=== PATIENT | female | born 1945 | race Caucasian/White ===

== ENCOUNTER 2019-10-15 06:16 | Inpatient (IN) | payer MEDICARE ==
[~2019-10-15] VITALS: Ht 162.6 cm; Wt 47.4 kg
[2019-10-15 06:21] VITALS: BP 203/91
[2019-10-15 08:18] LABS: APTT 27.3 Seconds (25.0-31.3); PROTIME 10.5 Seconds (9.20-11.50)
[2019-10-15 08:22] LABS: CALCIUM 8.2 mg/dL (8.5-10.1); CREATININE 0.6 mg/dL (0.6-1.3); POTASSIUM 4.4 mmol/L (3.5-5.1)
[2019-10-15 08:24] LABS: ABSOLUTE EOSINOPHILS 0.1 thou/uL (0.0-0.7); ABSOLUTE LYMPHOCYTES 1.2 thou/uL (0.8-5.3); ABSOLUTE MONOCYTES 0.8 thou/uL (0.0-1.2); ABSOLUTE NEUTROPHILS 4.7 thou/uL (1.6-8.1); BASOPHILS 0.5 %; EOSINOPHILS 0.9 %; HEMATOCRIT 38.1 % (37.0-47.0); HEMOGLOBIN 13.2 gm/dL (12.0-15.0); LYMPHOCYTES 17.1 %; MCH 34.1 pg (26.0-34.0); MCHC 34.6 g/dL (28.0-37.0); MCV 98.6 fL (80.0-100.0); MONOCYTES 11.3 %; MPV 7.7 fl. (7.2-11.1); NUCLEATED RBCS 0 /100WBC; PLATELET COUNT* 235 thou/uL (150-400); POLYS 70.2 %; RBC 3.87 mil/uL (4.20-5.00); RDW-CV 12.9 % (10.5-14.5); WBC 6.7 thou/uL (4.0-11.0)
[2019-10-15 08:27] LABS: ALBUMIN 3.6 g/dL (3.4-5.0); TOTAL BILIRUBIN 0.3 mg/dL (<0.1-1.0); TOTAL PROTEIN 6.5 g/dL (6.4-8.2)
[2019-10-15 08:38] LABS: URINE BILIRUBIN NEGATIVE (Negative); URINE BLOOD NEGATIVE (Negative); URINE CLARITY CLEAR; URINE COLOR YELLOW; URINE GLUCOSE-RANDOM NEGATIVE (Negative); URINE KETONES NEGATIVE (Negative); URINE LEUKOCYTES-REFLEX NEGATIVE (Negative); URINE NITRITE-REFLEX NEGATIVE (Negative); URINE PROTEIN NEGATIVE (Negative); URINE UROBILINOGEN 0.2 E.U./dl (0.2-1.0)
[2019-10-15 09:19] VITALS: BP 154/57
[2019-10-15 09:30] VITALS: BP 141/61
[2019-10-15 11:45] LABS: CALCIUM 7.6 mg/dL (8.5-10.1); CREATININE 0.6 mg/dL (0.6-1.3)
--- NOTE | 2019-10-15 16:18 | EKG ---
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
--- NOTE | 2019-10-15 18:31 | NUR ---
PATIENT ARRIVED TO UNIT AT APROX 0930. ALERT AND ORIENTED X4. ADMISSION HISTORY AND ASSESSMENT CPMPLETED AND CHARTED. VSS ON 2 LITERS 02. PAIN MEDICATION GIVEN BEFORE PATIENT CAME TO UNIT AND PATIENT COMFORTABLE AT THAT TIME. FLUIDS INFUSED ORDERED. PAIN MANAGED WITH IV FENTANYL. NO OTHER COMPLAINTS THIS SHIFT. FALL PRECAUTION IN PLACE. CALL LIGHT WIHTIN REACH. HOURLY ROUNDS COMPLETED. WILL CONTINUE WITH PLAN OF CARE.
[2019-10-15 20:00] VITALS: BP 126/59
[2019-10-16 04:12] LABS: HEMATOCRIT 32.3 % (37.0-47.0); MCH 34.4 pg (26.0-34.0); MCHC 34.6 g/dL (28.0-37.0); MCV 99.5 fL (80.0-100.0); RBC 3.25 mil/uL (4.20-5.00); RDW-CV 12.9 % (10.5-14.5); WBC 8.3 thou/uL (4.0-11.0)
[2019-10-16 04:29] LABS: HEMOGLOBIN 11.2 gm/dL (12.0-15.0)
[2019-10-16 04:31] LABS: CREATININE 0.7 mg/dL (0.6-1.3); MAGNESIUM 1.6 mg/dL (1.8-2.4); POTASSIUM 3.9 mmol/L (3.5-5.1)
[2019-10-16 05:45] VITALS: BP 126/59
--- NOTE | 2019-10-16 06:00 | NUR ---
PATIENT SLEPT WELL DURING THIS SHIFT. PT REQUESTED PAIN MEDICATION X2. PT C/O RT HIP PAIN. PT NPO SINCE MIDNIGHT. PT WITH SALINE LOCK IN RT FOREARM. PT REFUSED SEVERAL TURNS BUT WAS ASSISTED WTIH SOME. PT ON O2 @ 2 LITERS PER NASAL CANNULA. PT DENIES NEEDS AT THIS TIEM. FREQUENTLY USED ITEMS AND CALL LIGHT WITHIN REACH. SIDERAILS UPX2 AND BED ALARM ON. WILL CONTINUE TO MONITOR.
--- NOTE | 2019-10-16 06:23 | NUR ---
THREE RINGS, ONE WATCH AND EARRINGS WERE REMOVED FROM PATIENT AND PLACED IN BIOHAZARD BAG WITH PATIENT'S LABEL ON IT AND PUT IN [facility] 107
--- NOTE | 2019-10-16 10:15 | NUR ---
PT BACK FROM SURGERY. FAMILY AT BS. DENIES PAIN.
[2019-10-16 11:30] VITALS: BP 116/63
[2019-10-16 11:54] VITALS: BP 116/63
--- NOTE | 2019-10-16 13:25 | EKG ---
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 10/16/19 1325 7 Rc Pierson MD, [facility] /EPI
--- NOTE | 2019-10-16 15:44 | NUR ---
Nutrition: Pt admitted with femur head FX - surgery done. Regular diet ordered. Spoke with pt and today. Pt only ate a few bites today. She is at her usual wt, 104#, they reported no recent wt changes. BMI 17.9. PMHx: probable COPD, ETOH use. Labs: BG 107, albumin 3.6, Hgb 11.2. Pt refused Ensure supplements. Encouraged to eat well and keep strength up. Underweight R/T current conditions AEB "probable COPD," body frame, BMI <18.5. No other nutrition interventions today. Did explain how to order from menu. Mild risk.
[2019-10-16 16:03] VITALS: BP 119/66
--- NOTE | 2019-10-16 16:30 | NUR ---
SPOKE WITH PT.,SON-MOODY AND -DELLA. SHE WAS ALERT AND COULD ANSWER QUESTIONS APPROPRIATELY. SHE AND LIVE ALONE IN A HOUSE IN [facility]. SON,MOODY AND HIS , ALSO LIVE IN [place], [place]. DAUGHTER,JEANNETTE, LIVES IN [place] BUT WORKS IN [place]. PT.SAID SHE HAS A WALKER WITH SEAT BUT DOESN'T USE ALL THE TIME. THEY HAVE A RAMP TO GET INTO HOME. SHE DOES NOT HAVE O2 AT HOME. SHE SAID SHE HAS ALWAYS REFUSED HH IN THE PAST. PT.TO START PT/OT TOMORROW. SON FOLLOWED CM OUT OF ROOM. TOLD CM THAT AT DISCHARGE THEY WOULD LIKE PT.TO GO TO A SNF CALLED [facility] IN [place] [facility] ON . [phone]. CM WILL MAKE REFERRAL ON SATURDAY AM AFTER THERAPY HAS EVALUATED PT. SON SAID PT.IS NOT GOING TO HAVE A CHOICE ON WHETHER SHE GOES THERE OR NOT. HE SHARED THAT PT.IS AN ALCOHOLIC. SHE DRINKS UP TO 30 BEERS/DAY.
--- NOTE | 2019-10-16 17:49 | NUR ---
ASSUMED CARE OF PATIENT AT APPROX 1245. ALERT AND ORIENTED X4. VSS ON 2 LITERS 02. COMPLAINT OF PAIN ADDRESSED WITH ORAL NORCO. NO OTHER COMPLAINTS. DRESSING TO RIGHT HIP IS CLEAN, DRY AND INTACT. FAMILY AT BEDSIDE THROUGHOUT SHIFT. FALL PRECAUTIONS IN PLACE. CALL LIGHT WITHIN REACH. WILL CONTINUE WITH PLAN OF CARE.
[2019-10-16 20:11] VITALS: BP 145/54
[2019-10-17] VITALS: BP 132/54
[2019-10-17 04:00] VITALS: BP 133/56
--- NOTE | 2019-10-17 05:15 | NUR ---
PATIENT VERY HARD OF HEARING AND BLIND. SHE DID NOT REPORT ANY PAIN, SHE WANTED SOMETHING TO HELP HER SLEEP AND SHE SLEPT ALL SHIFT. MEPALEX ON RIGHT HIP STILL C/D/I. 2L - O2, WYLIE CLEAR YELLOW OUTPUT. ALERT AND ORIENTED BUT SOMEWHAT FORGETFUL. WILL CONTINUE TO FOLLOW PLAN OF CARE.
--- NOTE | 2019-10-17 05:27 | NUR ---
PATIENT NOW ON ROOM AIR SAT 98%
[2019-10-17 08:15] VITALS: BP 130/61
[2019-10-17 10:49] LABS: HEMATOCRIT 29.2 % (37.0-47.0); HEMOGLOBIN 10.1 gm/dL (12.0-15.0)
[2019-10-17 15:48] VITALS: BP 145/61
--- NOTE | 2019-10-17 16:45 | NUR ---
PATIENT ALERT AND ORIENTED X 4. VITAL SIGNS STABLE ON ROOM AIR. AFEBRILE. UP TO THE CHAIR FOR MOST OF THE DAY AND MEALS. AMBULATED A FEW STEPS IN ROOM. IV PATENT AND SALINE LOCKED. PAIN BEING MANAGED WITH PO MEDICATION. DENIES NAUSEA AT THIS TIME. MEPILEX DRESSING TO RIGHT HIP CLEAN, DRY, AND INTACT. FALL PRECAUTIONS IN PLACE AND BED ALARM ON. HOURLY ROUNDS MAINTAINED THROUGHOUT THE SHIFT. CALL LIGHT WITHIN REACH. NURSING WILL CONTINUE TO MONITOR.
[2019-10-17 20:00] VITALS: BP 161/59
[2019-10-17 20:30] VITALS: BP 139/72
[2019-10-18] VITALS: BP 153/55
[2019-10-18 04:10] VITALS: BP 133/63
--- NOTE | 2019-10-18 06:31 | NUR ---
Alert and oriented x 4,anxious and blind. She does state that she has a lot of pain to rt hip. Rt hip dressing is dry and intact.
[2019-10-18 08:15] VITALS: BP 141/63
[2019-10-18 15:55] VITALS: BP 150/56
--- NOTE | 2019-10-18 16:30 | NUR ---
PATIENT ALERT AND ORIENTED X 4. VITAL SIGNS STABLE ON ROOM AIR. AFEBRILE. UP WITH ASSISTANCE TO THE BEDSIDE COMODE AND UP TO THE CHAIR FOR MEALS. IV PATENT AND SALINE LOCKED. PAIN BEING MANAGED WITH PO MEDICATION. DENIES NAUSEA AT THIS TIME. DRESSING TO RIGHT HIP DRY AND INTACT WITH MINIMAL DRIED DRAINAGE. FALL PRECAUTIONS IN PLACE AND BED ALARM ON. HOURLY ROUNDS MAINTAINED THROUGHOUT THE SHIFT. CALL LIGHT WITHIN REACH. NURSING WILL CONTINUE TO MONITOR.
[2019-10-18 20:00] VITALS: BP 140/59
[2019-10-19 07:20] VITALS: BP 91/64
--- NOTE | 2019-10-19 07:29 | NUR ---
Oriented x 4 but she has extreme loss of vision and hearing. She does well though but does move slowly. She was up with assist x 1 to the chair and walker. PT did walk with her to the door in her room yesterday. Rt hip mepilex dressing is dry and intact. She did have ultram at bedtime. She has slept well this shift.
[2019-10-19] MEDS ORDERED: COLACE 100 MG100 MG PO (08:24)
[2019-10-19] MEDS ORDERED: ASPIRIN325 PO (08:24)
[2019-10-19] MEDS ORDERED: PAIN RELIEVER500 MG PO (08:24)
[2019-10-19] MEDS ORDERED: HYDROCODON-ACE1 EAC7 PO (08:24)
[2019-10-19 10:20] VITALS: BP 91/64
--- NOTE | 2019-10-19 15:00 | NUR ---
PT.NEEDS SNF AT DISCHARGE. CALLED [facility] IN [facility]-[phone] AND FAXED [facility] /[phone]. SPOKE WITH ANIMAL RIDE ATTENDANT. SHE SAID THEY ARE A [facility] FACILITY. PT.READY FOR DISCHARGE BUT MOST LIKELY WILL NOT LEAVE UNITL TOMORROW.
[2019-10-19 16:00] VITALS: BP 150/64
--- NOTE | 2019-10-19 17:25 | NUR ---
PT REMAINED ALERT AND ORIENTED. PT RESTING IN BED. PAIN MEDS GIVEN ORDERED. AWAITING PLACEMENT. FALL RISK PRECAUTIONS IN PLACE. HOURLY ROUNDING COMPLETED. WILL CONTINUE TO MONITOR.
[2019-10-20 07:05] VITALS: BP 160/63
--- NOTE | 2019-10-20 08:02 | NUR ---
PATIENT HAS SLEPT OFF AND ON DURING THE NIGHT. VSS ON RA. MEDICATIONS GIVEN ORDERED AND CHARTED. DRESSING TO RIGHT HIP IS C/D/I. WYLIE TO DEPENDENT DRAINAGE WITH YELLOW URINE OUTPUT. PATIENT INSTRUCTED TO USE CALL LIGHT WHEN NEEDING ASSISTANCE. HOURLY ROUNDS MADE. WILL CONTINUE WITH PLAN OF CARE AND NURSING TO MONITOR.
--- NOTE | 2019-10-20 13:38 | NUR ---
[facility] CALLED [facility] AND FEEL THEY CAN ACCEPT PT. HER BUISINESS OFFICE IS RUNNING HER MEDICARE DAYS. THEY ALSO NEED ANOTHER COVID TEST. TEST DONE AND RESULTED NEG. FAXED TO [facility]. AWAITING CALL BACK FROM FACILITY/[facility] REGARDING ACCEPTANCE. CHART COPIED TO GO WT PT. LALITO SHEPARD TO CALL REPORT. PT.TO GO BY WC [facility]. [facility] HAS THEIR OWN [facility] AND WILL SEND FOR PT.AT DISCHARGE. DAUGHTER, INFORMED.
[2019-10-20 15:16] VITALS: BP 91/64
--- NOTE | 2019-10-20 15:45 | NUR ---
PT.TO BE PICKED UP BY [facility] [phone]. [facility] CALLED AND SAID THEIR WC [facility] IS BOOKED UP SO WE WILL NEED TO ARRANGE ONE. COST WOULD BE $[address] [facility]. FAMILY CANNOT PAY THIS AMOUNT. JONNIE CALLED AND ASKED [facility] IF [facility]AN COULD BILL THEIR FACILITY. SHE SAID YES. NOTIFIED [facility] [phone]. FAXED DISCHARGE ORDERS TO [facility] [phone] AND INFORMED THEM OF ETA. DAUGHTER,HERE AND INFORMED OF DISCHARGE TIME. SHE TOLD PT. TWO OTHER FAMILY MEMBERS CALLED [facility] ALSO AND ASKED QUESTIONS ABOUT PT.S DISCHARGE.
[2019-10-20 15:46] VITALS: BP 156/55
[2019-10-20 17:00] VITALS: BP 91/64
--- NOTE | 2019-10-20 17:00 | NUR ---
REPORT CALLED TO FACILITY. PT BELONGINGS GATHERED. PT IV REMOVED. FALL RISK PRECAUTIONS IN PLACE. HOURLY ROUNDING COMPLETED. PT LEFT VIA WHEELCHAIR WITH NURSING STAFF TO FACILITY.
--- NOTE | 2019-10-23 11:51 | OP ---
[address] [address] OPERATIVE REPORT Name: BECK MURGUIA Room: [address]#: [id number] Admission: 10/15/19 Attend Phys: London Barber MD Discharge: 10/20/19 Date of : 43 Report #: [id number] THIS REPORT FOR: //name// cc: CARY Osorio family physician/PCP CARY - Jo family physician/PCP ~ THIS REPORT FOR: //name// CC: CARY physician/PCP London Barber DATE OF SERVICE: 10/16/2019 Sherri Gutiérrez DO, dictating for Mila Conteh DO PREOPERATIVE DIAGNOSIS: Right intertrochanteric femur fracture. POSTOPERATIVE DIAGNOSIS: Right intertrochanteric femur fracture. SURGEON: Mila Conteh DO SKEIN BANDER: Sherri Gutiérrez DO OPERATIONS PERFORMED: 1. Open reduction and internal fixation of right hip with intramedullary nail. 2. Intraoperative physician-guided fluoro less than 1 hour. ANESTHESIA TYPE: General. ESTIMATED BLOOD LOSS: 25 mL. SPECIMENS REMOVED: None. COMPLICATIONS: None. ANTIBIOTICS: Ancef 2 grams IV preoperatively. IMPLANTS: Rachelle 10 x 180 mm gamma nail. DRAINS: None. SPECIMENS: None. INDICATIONS FOR SURGERY: This is a pleasant 74-year-old female, who sustained a ground-level fall landing on her right hip. She was brought to the Emergency Room and found to have an intertrochanteric hip fracture. Surgical fixation was recommended. Risks, benefits, and complications [place] [address] OPERATIVE REPORT Name: BECK MURGUIA Room: [address] IN [facility].#: [id number] Admission: 10/15/19 Attend Phys: London Barber MD Discharge: 10/20/19 Date of : 43 Report #: [id number] patient. Risks include but are not limited to infection, neurovascular injury, DVT, PE, failure of hardware, malunion, nonunion, need for revision surgery, and other imponderables associated with general anesthesia. DESCRIPTION OF PROCEDURE: The patient was met in the preoperative suite where the correct side and extremity were agreed upon between the patient and the physician and the operating team. The right lower extremity was marked. The patient was then brought back to the operating room. She was given a general anesthetic and then transferred over to the fracture table. She underwent a closed reduction using C-arm that was physician directed. Once an appropriate position and reduction was obtained, she underwent a chlorhexidine prep and sterile draping for her right hip in the standard procedure and fashion. A timeout was then called and verified by everybody in the room for the right hip. At this time, a starting point was found via AP and lateral images with the C-arm. The incision was then made just proximal to the tip of the greater trochanter slightly posteriorly through skin and subcutaneous tissue with a 20 blade scalpel. The tensor fascia abisai was split longitudinally in line with the same scalpel. Blunt dissection was carried down to the tip of the greater trochanter using a sterile or a starting drill guide and was appropriately placed, verifying the position in AP and lateral views and appropriately the opening reamer was next accomplished. At this time, the nail was placed. Next, the lag screw technique was prepared with a small incision made. The guide was put to the lateral femoral cortex appropriately. The guidewire was now placed into the femoral head and neck verifying the position with the C-arm in both the AP and lateral views. We did go ahead again and appropriately reamed after we measured it to be 85 and selected for a 90-mm lag screw. It was appropriately secured into position and the set screw was applied and upon motion, setscrew was stable. At this time, the guide was removed. The distal screw holes next inside the most distal screw was drilled appropriately and measured and a 32.7-mm screw was selected and placed. Surgery continued with: At the end of the surgery, the patient then had all her incisions thoroughly and copiously irrigated to the deep proximal tensor and closed with an 0 Vicryl in a [id number] fashion. Subcutaneous tissues were 2-0 Vicryl and natalie to skin. Mepilex dressings were applied. She was transferred off the table and taken to recovery in stable condition. Dr. Conteh was present for all critical aspects of the surgery. Needle, instrument, and sponge counts were correct. The patient plans to spend one more night in the hospital and work with physical therapy. She will be weightbear as tolerated. She did discuss maybe going to ARU or SNF depending on progress with physical therapy. [address] [address] OPERATIVE REPORT Name: BECK MURGUIA Room: [address] IN M.R.#: [id number] Admission: 10/15/19 Attend Phys: London Barber MD Discharge: 10/20/19 Date of : 43 Report #: [id number] Attending Note: Operative report reviewed. Agree with above. I attest that I was present through all pertinent decision making aspects of the case. <ELECTRONICALLY SIGNED> By: Mila Conteh DO 10/23/19 1151 0913 1011Amarge Conteh DO /nt
== END 2019-10-20 17:01 | DRG 481 ==
LOC: M.ERS 06:16 → M.ORTHSURG 07:55 → M.TBA-ER 07:55 → M.ORTHSURG 09:30
PROVIDERS: Family Medicine; ADMIT Internal Medicine; ATTEND Internal Medicine
PROC: 0QS606Z Reposition Right Upper Femur with Intramedullary Internal Fixation Device, Open Approach (ICD-10-PCS; principal; 2019-10-16)
DX: M80.051A Age-related osteoporosis with current pathological fracture, right femur, initial encounter for fracture (principal); E87.1 Hypo-osmolality and hyponatremia; F17.210 Nicotine dependence, cigarettes, uncomplicated; I10 Essential (primary) hypertension; J44.9 Chronic obstructive pulmonary disease, unspecified; Z72.89 Other problems related to lifestyle; Z79.82 Long term (current) use of aspirin; Z03.818 Encounter for observation for suspected exposure to other biological agents ruled out